=== PATIENT | female | born 1990 | race African-American/Black ===

== ENCOUNTER 2017-03-03 12:25 | Emergency (ER) | payer OTHER ==
[~2017-03-03] VITALS: Ht 160 cm; Wt 115.7 kg
[~2017-03-03 12:25] MED LIST: ADIPEX-P37.5 MG; BENADRYL25 MG PO; CILOXAN5 ML OP; KEFLEX500 MG PO; NOHOMEMEDICATIONS; NORCO 5-325 TA1 EACH PO; PREDNISONE 20 M20 MG PO; TESSALON PERLE100 MG PO
[2017-03-03 12:26] VITALS: BP 131/88
[2017-03-03] MEDS ORDERED: NAPROSYN500 MG PO (12:44)
== END 2017-03-03 13:32 | disposition home or self-care (01) ==
LOC: ER 12:25
DX: M70.841 Other soft tissue disorders related to use, overuse and pressure, right hand (principal); Y93.89 Activity, other specified; M77.9 Enthesopathy, unspecified

== ENCOUNTER 2017-09-01 12:24 | Emergency (ER) | payer OTHER ==
[~2017-09-01] VITALS: Ht 165.1 cm; Wt 79.4 kg
[~2017-09-01 12:24] MED LIST changes: +NAPROSYN500 MG PO
[2017-09-01 12:47] LABS: URINE BILIRUBIN NEGATIVE (Negative); URINE BLOOD NEGATIVE (Negative); URINE CLARITY CLEAR; URINE COLOR YELLOW; URINE GLUCOSE-RANDOM* NEGATIVE (Negative); URINE KETONES NEGATIVE (Negative); URINE LEUKOCYTES-REFLEX NEGATIVE (Negative); URINE NITRITE-REFLEX NEGATIVE (Negative); URINE PROTEIN (DIPSTICK) NEGATIVE (Negative)
[2017-09-01] MEDS ORDERED: IBUPROFEN 600600 M1 PO (13:31)
== END 2017-09-01 13:40 | disposition home or self-care (01) ==
LOC: ER 12:24
PROVIDERS: Physician Assistant
DX: B34.9 Viral infection, unspecified (principal)

== ENCOUNTER 2017-12-19 10:03 | Emergency (ER) | payer OTHER ==
[~2017-12-19] VITALS: Ht 160 cm; Wt 120.2 kg
[~2017-12-19 10:03] MED LIST changes: +IBUPROFEN 600600 M1 PO
[2017-12-19] MEDS ORDERED: TOBRADEX EYE DRO5 ML OPHTHALMIC (12:13)
[2017-12-19 12:40] VITALS: BP 124/95
[2017-12-19] MEDS ORDERED: MOBIC7.5 MG PO (12:40)
== END 2017-12-19 13:03 | disposition home or self-care (01) ==
LOC: ER 10:03
DX: H10.12 Acute atopic conjunctivitis, left eye (principal); M79.89 Other specified soft tissue disorders; M25.571 Pain in right ankle and joints of right foot

== ENCOUNTER 2021-04-22 04:57 | Emergency (ER) | payer OTHER ==
[~2021-04-22] VITALS: Ht 160 cm; Wt 131.1 kg
[~2021-04-22 04:57] MED LIST changes: +MOBIC7.5 MG PO; +TOBRADEX EYE DRO5 ML OPHTHALMIC
[2021-04-22] MEDS ORDERED: OMEPRAZOLE 20 M20 M1 PO (05:11)
[2021-04-22] MEDS ORDERED: PHENTERMINE H37.5 MG PO (05:12)
[2021-04-22] MEDS ORDERED: GLUMETZA500 (05:12)
[2021-04-22 06:46] LABS: ABSOLUTE NEUTROPHILS 2.7 thou/uL (1.4-8.2); BASOPHILS 0.4 % (0.0-2.0); EOSINOPHILS 1.5 % (0.0-3.0); HEMOGLOBIN 13.9 gm/dL (12.0-15.0); LYMPHOCYTES 40.1 % (24.0-44.0); MCH 26.6 pg (26.0-34.0); MCV 80.6 fL (80.0-100.0); MONOCYTES 7.2 % (1.0-8.0); PLATELET COUNT 341 thou/uL (150-400); POLYS 50.8 % (36.0-66.0); RBC 5.21 mil/uL (4.20-5.00); RDW 14.1 % (10.5-14.5); WBC 5.3 thou/uL (4.0-11.0)
[2021-04-22 06:49] LABS: URINE BILIRUBIN NEGATIVE (Negative); URINE BLOOD 2+ (Negative); URINE CLARITY CLEAR; URINE COLOR YELLOW; URINE GLUCOSE-RANDOM* NEGATIVE (Negative); URINE KETONES NEGATIVE (Negative); URINE NITRITE-REFLEX NEGATIVE (Negative); URINE PROTEIN (DIPSTICK) NEGATIVE (Negative); URINE SPECIFIC GRAVITY 1.025 (1.005-1.035); URINE UROBILINOGEN >= 8.0 E.U./dl (0.2-1.0)
[2021-04-22 06:51] LABS: URINE LEUKOCYTES-REFLEX 2+ (Negative)
[2021-04-22 07:01] LABS: CASTS None Seen /LPF (None Seen); MUCUS 0-3 Light strn/LPF (None Seen); SQUAMOUS 4-10 Moderate /LPF (0-3)
[2021-04-22 07:02] LABS: BACTERIA-REFLEX 1-9 Few /HPF (None Seen); CRYSTALS None Seen /LPF (None Seen); URINE RBC 1-2 Rare /HPF (NONE SEEN); URINE WBC-REFLEX 0-5 Rare /HPF (0-5)
[2021-04-22 07:10] LABS: CALCIUM 8.6 mg/dL (8.5-10.1); CREATININE 1.1 mg/dL (0.6-1.0); POTASSIUM 4.1 mmol/L (3.5-5.1)
[2021-04-22 07:23] LABS: ALBUMIN 3.3 g/dL (3.4-5.0); DIRECT BILIRUBIN 0.3 mg/dL (<0.1-0.2); TOTAL BILIRUBIN 0.8 mg/dL (0.2-1.0); TOTAL PROTEIN 7.2 g/dL (6.4-8.2)
[2021-04-22 07:52] VITALS: BP 126/78
[2021-04-22] MEDS ORDERED: PEPCID20 MG PO (08:57)
== END 2021-04-22 08:53 | disposition home or self-care (01) ==
LOC: ER 04:57
PROVIDERS: Emergency Medicine
DX: K29.70 Gastritis, unspecified, without bleeding (principal); R10.11 Right upper quadrant pain; M54.89 Other dorsalgia; E66.9 Obesity, unspecified; Z68.43 Body mass index [BMI] 50.0-59.9, adult; Z79.84 Long term (current) use of oral hypoglycemic drugs; Z79.899 Other long term (current) drug therapy

== ENCOUNTER 2021-08-04 08:03 | Emergency (ER) | payer OTHER ==
[~2021-08-04] VITALS: Ht 160 cm; Wt 129.3 kg
[~2021-08-04 08:03] MED LIST changes: +GLUMETZA500; +OMEPRAZOLE 20 M20 M1 PO; +PEPCID20 MG PO; +PHENTERMINE H37.5 MG PO
[2021-08-04 08:54] LABS: URINE BILIRUBIN NEGATIVE (Negative); URINE BLOOD NEGATIVE (Negative); URINE CLARITY CLEAR; URINE COLOR YELLOW; URINE GLUCOSE-RANDOM* NEGATIVE (Negative); URINE KETONES NEGATIVE (Negative); URINE NITRITE-REFLEX NEGATIVE (Negative); URINE PROTEIN (DIPSTICK) NEGATIVE (Negative)
[2021-08-04 08:56] LABS: URINE LEUKOCYTES-REFLEX 2+ (Negative)
[2021-08-04 09:16] LABS: CASTS None Seen /LPF (None Seen); CRYSTALS None Seen /LPF (None Seen); SQUAMOUS >10 Many /LPF (0-3)
[2021-08-04 09:17] LABS: BACTERIA-REFLEX 1-9 Few /HPF (None Seen)
[2021-08-04 09:18] LABS: URINE RBC None Seen /HPF (NONE SEEN); URINE WBC-REFLEX 6-15 Few /HPF (0-5)
[2021-08-04 09:24] LABS: ABSOLUTE NEUTROPHILS 5.4 thou/uL (1.4-8.2); BASOPHILS 0.2 % (0.0-2.0); EOSINOPHILS 0.5 % (0.0-3.0); HEMATOCRIT 39.2 % (37.0-47.0); HEMOGLOBIN 12.7 gm/dL (12.0-15.0); MCH 26.8 pg (26.0-34.0); MCHC 32.5 g/dL (28.0-37.0); MCV 82.3 fL (80.0-100.0); MONOCYTES 6.6 % (1.0-8.0); PLATELET COUNT 320 thou/uL (150-400); POLYS 75.7 % (36.0-66.0); RBC 4.76 mil/uL (4.20-5.00); RDW 13.8 % (10.5-14.5); WBC 7.1 thou/uL (4.0-11.0)
[2021-08-04 09:30] LABS: CALCIUM 8.5 mg/dL (8.5-10.1); POTASSIUM 4.5 mmol/L (3.5-5.1)
[2021-08-04 09:36] LABS: ALBUMIN 3.3 g/dL (3.4-5.0)
[2021-08-04] MEDS ORDERED: LIDOCAINE VISC100 ML PO (10:56)
[2021-08-04 11:02] VITALS: BP 145/88
--- NOTE | 2021-08-05 07:32 | EKG ---
[place] [address] [facility] [place] [employer] [address] ELECTROCARDIOGRAM REPORT Name: ITA BENTELY Room #: DEP [facility]#: [id number] Admission: 08/04/21 Attend Phys: Discharge: 08/04/21 Date of : 88 Report #: [id number] [facility] ED Test Date: 2021-08-04 Test Time: 08:14:42 Pat Name: ITA BENTLEY Department: Room: Gender: F [employer]: NABILA : 1990 Requested By: Crista Rooney Order Number: [id number] MD: Yon Lerma Measurements Intervals [place] Rate: 75 P: 47 AR: 144 QRS: -6 QRSD: 83 T: 42 QT: 381 QTc: 426 Interpretive Statements Sinus rhythm ST elev, probable normal early repol pattern Baseline wander in lead(s) I,II,aVR,aVL No previous ECG available for comparison Electronically Signed On 08-05-2021 7:32:14 [employer] by Yon Lerma [email or web address] <ELECTRONICALLY SIGNED> By: Yon Lerma MD, [facility] 08/05/2132 3 3 Yon Lerma MD, FACC /EPI
== END 2021-08-04 11:10 | disposition home or self-care (01) ==
LOC: ER 08:03
PROVIDERS: Emergency Medicine
DX: K80.20 Calculus of gallbladder without cholecystitis without obstruction (principal); Z79.899 Other long term (current) drug therapy